=== PATIENT | female | born 1940 | race Caucasian/White ===

== ENCOUNTER 2016-09-13 17:20 | Emergency (ER) | payer OTHER ==
[~2016-09-13 17:20] MED LIST: ATENOLOL50 MG PO; ATORVASTATIN CA10 MG PO; LISINOPRIL20 MG PO; NAPROSYN500 MG PO; PRAVACHOL20 MG
[2016-09-13 17:26] LABS: URINE APPEARANCE CLEAR; URINE BILIRUBIN NEG (NEG); URINE BLOOD 3+ (NEG); URINE COLOR YELLOW; URINE GLUCOSE 50 MG/DL (NORM); URINE KETONE NEG (NEG); URINE LEUKOCYTE ESTERASE NEG (NEG); URINE NITRATE NEG (NEG); URINE PH 6.5 (5-8); URINE PROTEIN TRACE (NEG); URINE UROBILINOGEN 0.2 MG/DL (NORM)
[2016-09-13 17:33] LABS: MICRO INDICATED? YES; URINE SOURCE CLEAN CATCH
[2016-09-13 17:34] LABS: CULTURE INDICATED? YES; URINE BACTERIA 1+ (NEG); URINE RBC 50-100 /[HPF] (0-2); URINE SQUAMOUS EPITHELIAL CELL OCCAS /[HPF]
[2016-09-13 17:35] LABS: URINE HYALINE CAST 0-2 /[HPF]; URINE MUCUS PRESENT
== END 2016-09-13 17:59 | disposition home or self-care (01) ==
LOC: SED 17:20
PROVIDERS: Nurse Practitioner
DX: N30.91 Cystitis, unspecified with hematuria (principal); I10 Essential (primary) hypertension; F17.210 Nicotine dependence, cigarettes, uncomplicated; Z79.899 Other long term (current) drug therapy; Z88.8 Allergy status to other drugs, medicaments and biological substances; Z88.2 Allergy status to sulfonamides; Z88.5 Allergy status to narcotic agent
CPT/HCPCS: 81003; 87086; 99283